=== PATIENT | male | born 2000 | race Caucasian/White ===

== ENCOUNTER 2024-08-30 16:59 | Emergency (ER) | payer OTHER ==
--- NOTE | 2024-08-30 17:41 | ED ---
General Adult HPI - General Chief complaint: Shortness of Breath Stated complaint: SOB Time Seen by Provider: 08/30/24 17:16 Source: patient Mode of arrival: ambulatory Limitations: no limitations - History of Present Illness Initial comments: Dictation was produced using [employer] dictation software. please excuse any grammatical, word or spelling errors. Chief Complaint: 24-year-old male presents with chest pain shortness of breath History of Present Illness: Patient 24-year-old male presents emergency department for recurrence of chest pain and shortness of breath. Patient last week was seen at outside emergency department where he is found to have elevated troponin levels he was transferred to [facility] for cardiology workup and evaluation. He had a cardiac catheterization was found to be clean. He was diagnosed with viral myocarditis. Patient was fever free for the next couple hours. He was doing fine the last couple days until today he had recurrence of chest pain. He also has associated shortness of breath. Patient also having fevers. The ROS documented in this emergency department record has been reviewed and confirmed by me. Those systems with pertinent positive or negative responses have been documented in the HPI. All other systems are other negative and/or noncontributory. - Related Data Home Medications Medication Instructions Recorded Confirmed Acetaminophen Tab [Tylenol Tab] 1,000 mg PO Q6HR PRN 08/30/24 08/30/24 Allergies Allergy/AdvReac Type Severity Reaction Status Date / Time No Known Allergies Allergy Verified 08/30/24 19:24 Review of Systems ROS Statement: Those systems with pertinent positive or pertinent negative responses have been documented in the HPI. ROS Other: All systems not noted in ROS Statement are negative. Past Medical History History of Any Multi-Drug Resistant Organisms: None Reported Past Surgical History: Heart Catheterization Past Psychological History: No Psychological Hx Reported Smoking Status: Never smoker Past Alcohol Use History: None Reported Past Drug Use History: None Reported General Exam - General Exam Comments Initial Comments: PHYSICAL EXAM: General Impression: Alert and oriented x3, not in acute distress HEENT: Normocephalic atraumatic, extra-ocular movements intact, pupils equal and reactive to light bilaterally, mucous membranes moist. Cardiovascular: Tachycardic Chest: Able to complete full sentences, no retractions, no tachypnea Abdomen: abdomen soft, non-tender, non-distended, no organomegaly Musculoskeletal: Pulses present and equal in all extremities, no peripheral edema Motor: no focal deficits noted Neurological: CN II-XII grossly intact, no focal motor or sensory deficits noted Skin: Intact with no visualized rashes Psych: Normal affect and mood Limitations: no limitations Course Vital Signs 08/30/24 08/30/24 08/30/24 17:07 17:40 17:58 Temperature 102.4 F H 102.7 F H Pulse Rate 112 H 109 H Respiratory 18 20 20 Rate Blood Pressure 114/70 111/75 O2 Sat by Pulse 95 93 L Oximetry 08/30/24 08/30/24 08/30/24 18:00 18:35 20:21 Temperature 100.9 F H Pulse Rate 109 H 97 93 Respiratory 20 20 20 Rate Blood Pressure 140/70 95/62 126/75 O2 Sat by Pulse 98 98 94 L Oximetry 08/30/24 20:50 Temperature 98.6 F Pulse Rate Respiratory Rate Blood Pressure O2 Sat by Pulse Oximetry - Reevaluation(s) Reevaluation #1: 08/30/24 21:[address] [facility] was obtained. History of present illness was reviewed patient had a high-sensitivity troponin of 427. Cardiac catheterization was performed showing no acute processes. Cardiology had recommended cardiac MRI for further evaluation to be done outpatient. He had also been evaluated for autoimmune causes. Evaluated by rheumatology along with infectious disease. He had extensive infectious workup at [facility]. Medical Decision Making - Medical Decision Making Was pt. sent in by a medical professional or institution ([facility] Moss, TONG HOOKER, urgent care, hospital, or [place] [facility] facility...) When possible be specific @ -No Did you speak to anyone other than the patient for history (EMS, parent, family, police, friend...)? What history was obtained from this source @ -No Did you review nursing and triage notes (agree or disagree)? Why? @ -I reviewed and agree with nursing and triage notes Were old charts reviewed (outside hosp., previous admission, EMS record, old EKG, old radiological studies, urgent care reports/EKG's, [place] health care facility records)? Report findings @ -See above Differential Diagnosis (chest pain, altered mental status, abdominal pain women, abdominal pain men, vaginal bleeding, musculoskeletal, weakness, fever, dyspnea, syncope, headache, dizziness, GI bleed, back pain, seizure, CVA, palpatations, mental health)? @ -Differential Fever: Pneumonia, viral URI, endocarditis, myocarditis, pericarditis, otitis, sinusitis, peritonsillar Abscess, retropharyngeal Abscess, epiglottitis, peritonitis, appendicitis, Maida cystitis, diverticulitis, hepatitis, colitis, UTI, PID, TOA, pyelonephritis, prostatitis, epididymitis, meningitis, encephalitis, pulmonary embolism, CVA, thyroid storm, pancreatitis, adrenal crisis, cavernous sinus thrombosis, this is not meant to be an all-inclusive list. EKG interpreted by me (3pts min.). @ -See above X-rays interpreted by me (1pt min.). @ -Chest x-ray shows possible pulmonary vascular congestion CT interpreted by me (1pt min.). @ -CT angiography of the chest shows no pulmonary embolism. Concern for atelectasis versus pulmonary edema U/S interpreted by me (1pt. min.). @ -None done What testing was considered but not performed or refused? (CT, X-rays, U/S, labs)? Why? @ -None What meds were considered but not given or refused? Why? @ -None Was smoking cessation discussed for >3mins.? @ -No Were there social determinants of health that impacted care today? How? (Homelessness, low income, unemployed, alcoholism, drug addiction, transportation, low edu. Level, literacy, decrease access to med. care, [facility]ci, rehab)? @ -No Was there de-escalation of care discussed even if they declined (Discuss DNR or withdrawal of care, Hospice)? DNR status @ -No What co-morbidities impacted this encounter? (DM, HTN, Smoking, COPD, CAD, Cancer, CVA, ARF, Chemo, Hep., AIDS, mental health diagnosis, sleep apnea, morbid obesity)? @ -Recent myocarditis Was patient admitted / discharged? Hospital course, mention meds given and route, prescriptions, significant lab abnormalities, going to OR and other pertinent info. @ -24-year-old male presents to the emergency department with fever chest pain. He was recently worked up for myocarditis. Cardiac catheterization that was found to be unremarkable cleared and discharged. Patient at the bedside is well-appearing. Vital signs upon arrival show a temperature of 102.4, heart rate of 112. Patient given IV Tylenol. Laboratory evaluation obtained. Labs shows no leukocytosis. Coag panel is negative. Metabolic panel is negative. Cardiac labs are negative. D-dimer is elevated 6.79. Viral testing negative. CT shows no pulmonary embolism. There does appear to be some perihilar airspace opacities representing atelectasis versus pulmonary edema. Patient has clear lungs bilaterally. Observed emergency department for approximately 4 hours and 10 minutes. Reevaluated bedside 9:10 PM at the bedside states that he had 2 negative echocardiograms. They were offered overnight observation admission for cardiology consultation. Patient states he feels significantly improved after IV Tylenol and would like to be discharged. They are reasonably close to the hospital should any issues arise. They would prefer to be discharged with strict return precautions Did you discuss the management of the patient with other professionals (professionals i.e. , PA, TONG HOOKER, lab, RT, psych nurse, sexual assault social worker, order schedule clerk, teacher, special assets officer, case finisher)? Give summary @ -No Was critical care preformed (if so, how long)? @ -No Undiagnosed new problem with uncertain prognosis? @ -No Drug Therapy requiring intensive monitoring for toxicity (Heparin, Nitro, Ins ulin, Cardizem)? @ -No Were any procedures done? @ -No Diagnosis/symptom? Acute, or Chronic, or Acute on Chronic? Uncomplicated (without systemic symptoms) or Complicated (systemic symptoms)? @ -Fever, dyspnea Side effects of treatment? @ -No Exacerbation, Progression, or Severe Exacerbation? @ -No Poses a threat to life or bodily function? How? (Chest pain, [place], [place], pneumonia, PE, COPD, DKA, ARF, appy, cholecystitis, CVA, Diverticulitis, Homicidal, Suicidal, threat to staff... and all critical care pts) @ -No - Lab Data Result diagrams: 08/30/24 17:31 08/30/24 17:31 Lab Results 08/30/24 08/30/24 08/30/24 Range/Units 17:31 17:31 17:31 WBC 7.9 (3.8-10.6) k/uL RBC 5.57 (4.30-5.90) m/uL Hgb 15.6 (13.0-17.5) gm/dL Hct 47.5 (39.0-53.0) % MCV 85.3 (80.0-100.0) fL MCH 28.1 (25.0-35.0) pg MCHC 32.9 (31.0-37.0) g/dL RDW 13.0 (11.5-15.5) % Plt Count 244 (150-450) k/uL MPV 9.1 Neutrophils % (Manual) 58 % Lymphocytes % (Manual) 37 % Monocytes % (Manual) 5 % Neutrophils # (Manual) 4.58 (1.3-7.7) k/uL Lymphocytes # (Manual) 2.92 (1.0-4.8) k/uL Monocytes # (Manual) 0.40 (0-1.0) k/uL Nucleated RBCs 0 (0-0) /100 WBC Manual Slide Review Performed PT (10.0-12.5) sec INR (<1.2) APTT (22.0-30.0) sec D-Dimer (<0.60) mg/L FEU Sodium (137-145) mmol/L Potassium (3.5-5.1) mmol/L Chloride (98-107) mmol/L Carbon Dioxide (22-30) mmol/L Anion Gap mmol/L BUN (9-20) mg/dL Creatinine (0.66-1.25) mg/dL Est GFR (CKD-EPI)AfAm (>60 ml/min/1.73 sqM) Est GFR (CKD-EPI)NonAf (>60 ml/min/1.73 sqM) Glucose (74-99) mg/dL Calcium (8.4-10.2) mg/dL Magnesium (1.6-2.3) mg/dL Total Bilirubin (0.2-1.3) mg/dL AST (17-59) U/L ALT (4-49) U/L Alkaline Phosphatase (38-126) U/L Troponin I <0.012 (0.000-0.034) ng/mL NT-Pro-B Natriuret Pep pg/mL Total Protein (6.3-8.2) g/dL Albumin (3.5-5.0) g/dL Influenza Type A (PCR) Not Detected (Not Detectd) Influenza Type B (PCR) Not Detected (Not Detectd) RSV (PCR) Not Detected (Not Detectd) SARS-CoV-2 (PCR) Not Detected (Not Detectd) 08/30/24 08/30/24 Range/Units 17:31 17:31 WBC (3.8-10.6) k/uL RBC (4.30-5.90) m/uL Hgb (13.0-17.5) gm/dL Hct (39.0-53.0) % MCV (80.0-100.0) fL MCH (25.0-35.0) pg MCHC (31.0-37.0) g/dL RDW (11.5-15.5) % Plt Count (150-450) k/uL MPV Neutrophils % (Manual) % Lymphocytes % (Manual) % Monocytes % (Manual) % Neutrophils # (Manual) (1.3-7.7) k/uL Lymphocytes # (Manual) (1.0-4.8) k/uL Monocytes # (Manual) (0-1.0) k/uL Nucleated RBCs (0-0) /100 WBC Manual Slide Review PT 11.1 (10.0-12.5) sec INR 1.0 (<1.2) APTT 25.5 (22.0-30.0) sec D-Dimer 6.79 H (<0.60) mg/L FEU Sodium 136 L (137-145) mmol/L Potassium 4.4 (3.5-5.1) mmol/L Chloride 101 (98-107) mmol/L Carbon Dioxide 27 (22-30) mmol/L Anion Gap 8 mmol/L BUN 13 (9-20) mg/dL Creatinine 1.00 (0.66-1.25) mg/dL Est GFR (CKD-EPI)AfAm >90 (>60 ml/min/1.73 sqM) Est GFR (CKD-EPI)NonAf >90 (>60 ml/min/1.73 sqM) Glucose 106 H (74-99) mg/dL Calcium 9.0 (8.4-10.2) mg/dL Magnesium 2.4 H (1.6-2.3) mg/dL Total Bilirubin 0.6 (0.2-1.3) mg/dL AST 57 (17-59) U/L ALT 120 H (4-49) U/L Alkaline Phosphatase 86 (38-126) U/L Troponin I (0.000-0.034) ng/mL NT-Pro-B Natriuret Pep 139 pg/mL Total Protein 8.2 (6.3-8.2) g/dL Albumin 4.5 (3.5-5.0) g/dL Influenza Type A (PCR) (Not Detectd) Influenza Type B (PCR) (Not Detectd) RSV (PCR) (Not Detectd) SARS-CoV-2 (PCR) (Not Detectd) Disposition Clinical Impression: Fever Disposition: HOME SELF-CARE Condition: Fair Instructions (If sedation given, give patient instructions): Fever in Adults (ED) Is patient prescribed a controlled substance at d/c from ED?: No Referrals: None,Stated [Primary Care Provider] - 1-2 days Time of Disposition: 21:19
[2024-08-30] MEDS: SODIUM CHLORIDE 0.9% 1,000 ML IV STA (17:54)
[2024-08-30] MEDS: ACETAMINOPHEN IV (For NPO) 1,000 MG in EMPTY BAG 1 BAG IVPB STA (17:54)
--- NOTE | 2024-08-30 18:12 | XR ---
EXAMINATION TYPE: XR chest 2V DATE OF EXAM: 08/30/2024 6:05 PM COMPARISON: None CLINICAL INDICATION: Male, 24 years old with history of shortness of breath, myocarditis; [facility] TECHNIQUE: XR chest 2V Frontal and lateral views of the chest. FINDINGS: Lungs/Pleura: There is no evidence of pleural effusion, focal consolidation, or pneumothorax. Pulmonary vascularity: Unremarkable. Heart/mediastinum: Cardiomediastinal silhouette is unremarkable. Musculoskeletal: No acute osseous pathology. IMPRESSION: Perihilar airspace opacities correlate for pulmonary vascular congestion versus low lung volumes. [facility], , 08/30/2024 6:10 PM
[2024-08-30 18:47] LABS: ALT 120 U/L (4-49); AST 57 U/L (17-59); African American GFR (CKD) >90 (>60 ml/min/1.73 sqM); Albumin 4.5 g/dL (3.5-5.0); Alkaline Phosphatase 86 U/L (38-126); Anion Gap 8 mmol/L; Blood Urea Nitrogen 13 mg/dL (9-20); Carbon Dioxide 27 mmol/L (22-30); Chloride 101 mmol/L (98-107); Glucose 106 mg/dL (74-99); Magnesium 2.4 mg/dL (1.6-2.3); Non-African American GFR(CKD) >90 (>60 ml/min/1.73 sqM); Potassium 4.4 mmol/L (3.5-5.1); Sodium 136 mmol/L (137-145); Total Bilirubin 0.6 mg/dL (0.2-1.3); Total Protein 8.2 g/dL (6.3-8.2)
[2024-08-30 18:55] LABS: NT-Pro-B-Type Natriuretic Pept 139 pg/mL
[2024-08-30 18:57] LABS: Partial Thromboplastin Time 25.5 sec (22.0-30.0); Prothrombin Time 11.1 sec (10.0-12.5)
[2024-08-30 19:10] LABS: HCT 47.5 % (39.0-53.0); HGB 15.6 gm/dL (13.0-17.5); MCH 28.1 pg (25.0-35.0); MCHC 32.9 g/dL (31.0-37.0); MCV 85.3 fL (80.0-100.0); Mean Platelet Volume 9.1; Platelet Count 244 k/uL (150-450); RBC 5.57 m/uL (4.30-5.90); WBC 7.9 k/uL (3.8-10.6)
[2024-08-30 19:37] LABS: Lymphocytes # (M) 2.92 k/uL (1.0-4.8); Neutrophils # (M) 4.58 k/uL (1.3-7.7); Neutrophils % (M) 58 %; Nucleated Red Blood Cells 0 /100 WBC (0-0); Total Cells Counted 100
--- NOTE | 2024-08-30 20:21 | CT ---
EXAMINATION TYPE: CT angio chest DATE OF EXAM: 08/30/2024 8:05 PM COMPARISON: Chest radiograph from same day. CLINICAL INDICATION: Male, 24 years old with history of positive D-dimer; Pt comes to with complai nt of SOB. Pt did have a heart cath at [facility] that was clean. Pt had cath due to having chest pain with elevated trops at [place] but no stents. TECHNIQUE/CONTRAST: CTA scan of the thorax is performed with IV Contrast, patient injected with 100ml mL of Isovue 370, M IP images are created and reviewed these are created on a separate workstation.. CT DLP: 384.1 mGycm, Automated exposure control for dose reduction was used. FINDINGS: Lungs/Pleura: Mild intralobular septal thickening most pronounced posteriorly. No evidence of focal c onsolidation, pleural effusion or pneumothorax. Airway: Large airways are patent. Heart: Heart is within normal limits for size. Vasculature: There is no evidence for a filling defect within the pulmonary vasculature to suggest ac [place] pulmonary embolism. The pulmonary artery is of normal size. Mediastinum: No gross evidence of adenopathy. Musculoskeletal: No acute osseous abnormalities Soft Tissues/lymph nodes: Unremarkable. Lower neck: No significant findings. Upper Abdomen: No significant findings. IMPRESSION: 1. No evidence of pulmonary embolism. 2. Perihilar airspace opacities on plain film possibly representing atelectasis/pulmonary edema on CT . No airspace disease definitively visualized. [facility], , 08/30/2024 8:19 PM
[2024-08-30 20:50] VITALS: TEMP 98.6
[2024-08-30 21:37] VITALS: BP 117/70; PULSE 92; RESP 18
== END 2024-08-30 21:47 | disposition home or self-care (01) ==
LOC: EC 16:59
DX: R50.9 Fever, unspecified (principal); R06.02 Shortness of breath; R79.1 Abnormal coagulation profile; Z86.79 Personal history of other diseases of the circulatory system
CPT/HCPCS: 99285; 96365; 36415; 93005; 85379; 83880; 80053; 83735; 84484; 85025; 85610; 85730; 87040; 87636; 71046; 71275; J0131; Q9967